=== PATIENT | female | born 1985 | race Caucasian/White ===

== ENCOUNTER 2016-05-11 09:13 | Emergency (ER) | payer OTHER ==
[~2016-05-11] VITALS: Ht 185.4 cm; Wt 113.4 kg
[~2016-05-11 09:13] MED LIST: ADVAIR HFA1 AER INH; ALBUTEROL0.09 MG/A1 INH; CARISOPRODOL350 M1 PO; CLINDAMYCIN HY300 MG PO; FIORICET 50-301 EACH PO; MECLIZINE HCL25 MG PO; MIRENA1 EACH; MOTRIN 600 MG600 MG PO; NAPROXEN500 M2 PO; PERCOCET 325 MG1 TA2 PO; PREDNISONE50 MG PO; REGLAN10 M1 PO; SUMATRIPTAN SU100 M1 PO; ZITHROMAX Z-PA250 M1 PO
--- NOTE | 2016-05-11 09:44 | ED GI/GU/ABDOMINAL COMPLAINT ---
History of Present Illness General Chief Complaint: Abdominal Pain/Flank Pain Stated Complaint: LOWER ABDOMINAL PAIN Source: patient Exam Limitations: no limitations Vital Signs & Intake/Output Vital Signs & Intake/Output Vital Signs Date Time Temp Pulse Resp B/P Pulse O2 O2 Flow FiO2 Ox Delivery Rate 05/11 1557 98.7 62 18 121/65 100 Room Air 05/11 1343 97.4 55 18 113/67 98 Room Air 05/11 1109 Room Air Room Air 05/11 0918 97.1 63 20 120/73 98 Room Air Allergies Coded Allergies: Penicillins (Intermediate, HIVES 09/11/15) amoxicillin (Intermediate, HIVES 09/11/15) clavulanic acid (From AUGMENTIN) (Intermediate, HIVES 09/11/15) Reconcile Medications Butalb/Acetaminophen/Caffeine (Fioricet 50-300-40 MG Capsule) 1 EACH CAPSULE 1 -2 TAB PO Q6H PRN HEADACHE Carisoprodol 350 MG TABLET 1 TAB PO BIDP PRN MUSCLE RELAXER (Reported) Levonorgestrel (Mirena) 1 EACH IUD CONTROL - IUD (Reported) Meclizine HCl 25 MG TABLET 1 TAB PO PRN DIZZINESS (Reported) Metoclopramide HCl (Reglan) 10 MG TABLET 1 TAB PO Q8H PRN nausea/headache Naproxen 500 MG TABLET 1 TAB PO BID PRN MIGRAINES (Reported) Oxycodone HCl/Acetaminophen (Percocet 5-325 MG Tablet) 5 MG-325 MG TABLET 1 TAB PO BID PRN pain Sumatriptan Succinate 100 MG TABLET 1 TAB PO AD HEADACHE (Reported) may repeat in 2 hours; do not exceed 200 mg in 24 hours Triage Note: LLQ PAIN THAT RADIATES INTO LEFT FLANK AND ACROSS ENTIRE ABDOMEN SINCE SATURDAY. +NAUSEA/VOMITING. PT STATES PAIN GETS MORE INTENSE WITH URINATION AND BM. Triage Nurses Notes Reviewed? yes ? N Is pt currently ? No HPI: This patient is a 30-year-old female with a past medical history including RAYNAUD'S, and cardiogenic syncope who presented to the emergency department today for evaluation of abdominal pain. She reported that since Saturday she has been having left lower quadrant abdominal pain which sometimes radiates across her stomach and now radiates to her left side/flank. The patient reported that the pain is 7 out of 10 and is sharp. She reported that sometimes it is worse with urination and bowel movements. She denied any blood in her stool, blood in the urine, urinary burning, urgency, or frequency. The patient reported nausea, but no vomiting. The patient reported that she recently saw her SURGICAL SUPPLIES STERILIZER approximately 2 days ago and was told that there may be a small left-sided ovarian cyst which is, "draining,"and that she should expect her symptoms to resolve in about a day. The patient is concerned that her symptoms have not resolved. The patient has an IUD in. Her SURGICAL SUPPLIES STERILIZER also did an internal examination and told her that everything was fine. No fevers, chills, chest pain, or difficulty breathing. The patient ate a bagel this morning without any difficulty. (FRANCISCO NGUYEN PA-C) Past History Travel History Traveled to [place] past 21 day No Medical History Any Pertinent Medical History? see below for history Neurological: migraine, seizure, vertigo EENT: NONE Cardiovascular: NONE Respiratory: NONE Gastrointestinal: NONE Hepatic: NONE Renal: NONE Musculoskeletal: NONE Psychiatric: NONE Endocrine: NONE Blood Disorders: NONE Cancer(s): NONE COOK RESTAURANT/Reproductive: NONE Surgical History Surgical History: N Psychosocial History What is your primary language Kyrgyz Tobacco Use: Current Daily Use Daily Tobacco Use Amount/Type: => 5 Cigarettes daily ETOH Use: occasional use Illicit Drug Use: denies illicit drug use Family History Hx Contributory? No (FRANCISCO NGUYEN PA-C) Review of Systems Review of Systems Constitutional: Reports: no symptoms. EENTM: Reports: no symptoms. Respiratory: Reports: no symptoms, see HPI, cough, hemoptysis, orthopnea, short of breath, sputum production, stridor, wheezing. Cardiovascular: Reports: no symptoms. GI: Reports: see HPI. Genitourinary: Reports: see HPI. Musculoskeletal: Reports: no symptoms. Skin: Reports: no symptoms. Neurological/Psychological: Reports: no symptoms. All Other Systems: Reviewed and Negative (FRANCISCO NGUYEN PA-C) Physical Exam Physical Exam Gastrointestinal: normal bowel sounds, soft, no organomegaly, TENDERNESS TO PALPATION IN THE LEFT GROIN REGION. nO REBOUND OR GUARDING. nONDISTENDED. nO MASSES APPRECIATED Comments: Well-developed well-nourished person in no acute distress HEENT: Normal EENT exam, moist mucous membranes Neck: Supple, no lymphadenopathy Back: Normal gait Cardiovascular: Regular rate and rhythm with no murmurs Respiratory: Chest nontender. No respiratory distress. Breath sounds clear to auscultation bilaterally Extremity: Normal and equal pulses Neuro: Alert oriented x3, cranial nerves II through XII grossly intact. Skin: No appreciable rash on exposed skin, skin is warm and dry. Psych: Mood and affect is normal Core Measures ACS in differential dx? No Severe Sepsis Present: No Septic Shock Present: No (PATRICK RESTREPO,FRANCISCO) Progress Differential Diagnosis: AMI, appendicitis, biliary colic, bowel obstruction, colon cancer, cholecystitis, diverticulitis, ectopic , endometritis, gastritis, hepatitis, hernia, ischemic bowel, inflamm bowel dis, intrauterine , kidney stone, ovarian cyst, ovarian torsion, pancreatitis, PID/ cervicitis, PUD/GERD, perforated viscous, SBO, threatened AB, UTI/pyelo Plan of Care: Orders Procedure Date/time Status Regular Diet 05/11 D Active RAPID VIRAL INFLUENZA A 05/11 0949 Complete LIPASE 05/11 0949 Complete COMPREHENSIVE METABOLIC PANEL 05/11 0949 Complete CBC WITHOUT DIFFERENTIAL 05/11 0949 Complete CULTURE,URINE 05/11 0947 Active URINE 05/11 0920 Complete URINALYSIS 05/11 0920 Complete Laboratory Tests 05/11/16 1034: Anion Gap 6, Estimated GFR > 60, BUN/Creatinine Ratio 28.0 H, Glucose 85, Calcium 8.5, Total Bilirubin 0.4, AST 71 H, ALT 122 H, Alkaline Phosphatase 57 , Total Protein 6.1 L, Albumin 3.7, Globulin 2.4, Albumin/Globulin Ratio 1.5, Lipase 67, CBC w Diff NO MAN DIFF REQ, RBC 4.22, MCV 90.5, MCH 30.2, RDW 13.3, MPV 7.4, Gran % 49.8, Lymphocytes % 38.5, Monocytes % 7.2, Eosinophils % 4.1, Basophils % 0.4, Absolute Granulocytes 4.3, Absolute Lymphocytes 3.3, Absolute Monocytes 0.6, Absolute Eosinophils 0.3, Absolute Basophils 0, PUBS MCHC 33.4, Urinalysis MOD H, Urine Color YEL, Urine Clarity CLDY H, Urine pH 8.5 H, Ur Specific [place] 1.015, Urine Protein TRACE H, Urine Ketones NEG, Urine Nitrite NEG, Urine Bilirubin NEG, Urine Urobilinogen 0.2, Ur Leukocyte Esterase NEG, Ur Microscopic SEDIMENT EXAMINED, Urine RBC 1-3, Urine WBC RARE, Ur Epithelial Cells MANY H, Urine Hemoglobin NEG, Urine Glucose NEG, Urine Test NEGATIVE Microbiology 05/11 1033 URINE ROUT: Urine Culture - RECD 05/11 1033 NASOPHARYN: Influenza Virus A & B Rapid Smear - COMP Diagnostic Imaging: Viewed by Me: CT Scan. Discussed w/RAD: CT Scan. Radiology Impression: PATIENT: AGUSTIN JOLLY PRESENT AGE: 30 PATIENT ACCOUNT NO: [id number] : 87 LOCATION: [facility] ORDERING PHYSICIAN: FRANCISCO NGUYEN PA-C SERVICE DATE: 05/11/16 EXAM TYPE: CAT - CT ABD & PELVIS W IV CONTRAST; US-TRANSVAGINAL EXAMINATION: CT ABDOMEN AND PELVIS WITH CONTRAST ULTRASOUND PELVIS CLINICAL INFORMATION: Evaluate for appendicitis. Abdominal pain. COMPARISON: None TECHNIQUE: Multidetector volumetric imaging was performed of the abdomen and pelvis before and after the IV administration of 93 mL of Optiray 320 intravenous contrast. Sagittal and coronal reformatted images were obtained on the technologist's workstation. DLP: 1430.55 mGy-cm FINDINGS: LUNG BASES: Minor dependent groundglass attenuation bilateral bases, left greater than right. Findings may be partly attributed to dependent atelectasis.. LIVER, GALLBLADDER, AND BILIARY TREE: The liver is normal in size, shape, and attenuation. No focal hepatic lesion or biliary ductal dilatation is present. Nonvisualization of the gallbladder may represent prior cholecystectomy. No evidence of biliary ductal dilatation. PANCREAS: Unremarkable. SPLEEN: Unremarkable. ADRENAL GLANDS: Unremarkable. KIDNEYS AND URETERS: The kidneys are normal in size, shape, and attenuation. No hydronephrosis, hydroureter, or calculi seen. No perinephric stranding. BLADDER: Unremarkable. GASTROINTESTINAL TRACT: Unremarkable appendix. No acute bowel pathology. ABDOMINAL WALL: No significant hernia is appreciated. LYMPH NODES: Small reactive mesenteric and retroperitoneal lymph nodes. No lymphadenopathy. VASCULAR: Unremarkable. PELVIC VISCERA: Enlarged left ovary with dominant slightly complex appearing cyst with internal septation measuring approximately 5.9 x 4.8 x 5.4 cm. Right ovary is within normal limits. No gross solid or cystic foci identified. There is small amount of adjacent free fluid. Anteverted uterus with intrauterine device in place. OSSEOUS STRUCTURES: No acute osseous abnormality. Unremarkable visualized osseous structures.. US PELVIS CLINICAL INFORMATION: Left groin pain COMPARISON: None TECHNIQUE: Transabdominal and transvaginal FINDINGS: Anteverted uterus measures 9.2 x 4.7 x 6.2 cm. Intrauterine device seen on the CT scan is faintly visualized. Endometrium is not well visualized. Measures approximately 0.7 cm. No evidence of uterine fibroids. Cervical length is 2.8 cm. Tiny nabothian cyst is noted. Enlarged left ovary measuring 5.3 x 4.1 x 5.5 cm. Total volume 62.9 mL. Complex cyst noted in the left ovary measuring approximately 3.2 x 3.8 x 3.3 cm. There is internal septation and debris. Adjacent simple cyst most likely represents part of the complex cyst by thick septation measures 4 x 3.2 x 4.2 cm. Small amount of ovarian tissue surrounding the cyst demonstrates normal flow. Right ovary measures 3.4 x 1.8 x 2.4 cm. Total volume 7.6 mL. Normal vascular flow. There is small amount of free fluid. IMPRESSION: CT ABDOMEN AND PELVIS 1. There is no evidence of acute appendicitis. 2. Large complex cystic mass left ovary with internal septations. Pelvic free fluid. ULTRASOUND PELVIS 1. Large complex cystic mass left ovary with internal debris and internal septations. Combined measurement is approximately 5.3 x 4.1 x 5.5 cm. Free fluid. COOK RESTAURANT evaluation recommended. 2. No evidence of ovarian torsion. DICTATED BY: STAR RODRIGUEZ MD DATE/TIME DICTATED:05/11/161318 SENIOR SCHEDULER:LEVY DATE/TIME TRANSCRIBED:05/11/161318 CONFIDENTIAL, DO NOT COPY WITHOUT APPROPRIATE AUTHORIZATION. <Electronically signed in Other Vendor System> SIGNED BY: STAR RODRIGUEZ MD 05/11/16 0392 Initial ED EKG: none Comments: 05/11/2016 12:15:25 PM: I updated the patient on the results of her laboratory studies. We will repeat the ultrasound to evaluate her left ovarian cyst. I also discussed this patient the risks of radiation when her mother suggested a CT scan of the abdomen and pelvis they understand would like to go ahead with the CT scan. The patient's mother reported that appendicitis and ovarian cysts run in the family. 05/11/2016 4:04:11 PM: Spoke to on-call OB/GYBN Dr. Cash after being unable to get ahold of this patient's personal OB. SHe believes this is a hemhorragic cyst. H&H is stable. Pulse is WNL. She suggested discharge with Percocet, Motrin , and OB follow-up. (PATRICK RESTREPO,FRANCISCO) Departure Departure Disposition: HOME OR SELF CARE Condition: Stable Clinical Impression Primary Impression: Ovarian cyst Qualifiers: Laterality: left Qualified Code: N83.202 - Unspecified ovarian cyst , left side Referrals: JAKE PEDROZA APRN (PCP/Family) HILTON ORDOÑEZ,PAYAL Nathan Additional Instructions: Please follow-up with your SURGICAL SUPPLIES STERILIZER as discussed. You have been provided a copy of the ultrasound and CT scan report. Please return to the emergency department for any worsening symptoms or concerns. Take [id number] Motrin. Percocet as prescribed. Departure Forms: Customer Survey General Discharge Information Prescriptions: Current Visit Scripts Oxycodone HCl/Acetaminophen (Percocet 5-325 MG Tablet) 1 TAB PO BID PRN pain #10 TAB (FRANCISCO NGUYEN PA-C) PA/RETAIL BRAND AMBASSADOR Co-Sign Statement Statement: ED Attending supervision documentation- [] I saw and evaluated the patient. I have also reviewed all the pertinent lab results and diagnostic results. I agree with the findings and the plan of care as documented in the PA's/RETAIL BRAND AMBASSADOR's documentation. [X] I have reviewed the ED Record and agree with the PA's/RETAIL BRAND AMBASSADOR's documentation. [] Additions or exceptions (if any) to the PAs/RETAIL BRAND AMBASSADOR's note and plan are summarized below: [] (FADUMO ORDOÑEZ,ANTHONY)
[2016-05-11 10:59] LABS: ABSOLUTE BASOPHIL COUNT 0 /CUMM (0.0-0.2); ABSOLUTE EOSINOPHIL COUNT 0.3 /CUMM (0.0-0.7); ABSOLUTE GRANULOCYTE CT 4.3 /CUMM (1.4-6.5); ABSOLUTE LYMPH COUNT 3.3 /CUMM (1.2-3.4); ABSOLUTE MONOCYTE COUNT 0.6 /CUMM (0.10-0.60); BASOPHIL % 0.4 % (0.0-2.0); EOSINOPHIL % 4.1 % (0-5); GRANULOCYTE % 49.8 % (42.2-75.2); HEMATOCRIT 38.2 % (37-47); MEAN CORPUSCULAR HGB 30.2 PG (27.0-31.0); MEAN CORPUSCULAR HGB CONC 33.4 G/DL (33.0-37.0); MEAN CORPUSCULAR VOLUME 90.5 FL (81.0-99.0); MEAN PLATELET VOLUME 7.4 FL (7.4-10.4); PLATELET COUNT 316 /CUMM (130-400); RBC DISTRIBUTION WIDTH 13.3 % (11.5-14.5); RED BLOOD CELL CT 4.22 /CUMM (4.20-5.40); WHITE BLOOD CELL COUNT 8.6 /CUMM (4.8-10.8)
--- NOTE | 2016-05-11 13:51 | CT SCAN REPORT ---
EXAMINATION: CT ABDOMEN AND PELVIS WITH CONTRAST ULTRASOUND PELVIS CLINICAL INFORMATION: Evaluate for appendicitis. Abdominal pain. COMPARISON: None TECHNIQUE: Multidetector volumetric imaging was performed of the abdomen and pelvis before and after the IV administration of 93 mL of Optiray 320 intravenous contrast. Sagittal and coronal reformatted images were obtained on the technologist's workstation. DLP: 1430.55 mGy-cm FINDINGS: LUNG BASES: Minor dependent groundglass attenuation bilateral bases, left greater than right. Findings may be partly attributed to dependent atelectasis.. LIVER, GALLBLADDER, AND BILIARY TREE: The liver is normal in size, shape, and attenuation. No focal hepatic lesion or biliary ductal dilatation is present. Nonvisualization of the gallbladder may represent prior cholecystectomy. No evidence of biliary ductal dilatation. PANCREAS: Unremarkable. SPLEEN: Unremarkable. ADRENAL GLANDS: Unremarkable. KIDNEYS AND URETERS: The kidneys are normal in size, shape, and attenuation. No hydronephrosis, hydroureter, or calculi seen. No perinephric stranding. BLADDER: Unremarkable. GASTROINTESTINAL TRACT: Unremarkable appendix. No acute bowel pathology. ABDOMINAL WALL: No significant hernia is appreciated. LYMPH NODES: Small reactive mesenteric and retroperitoneal lymph nodes. No lymphadenopathy. VASCULAR: Unremarkable. PELVIC VISCERA: Enlarged left ovary with dominant slightly complex appearing cyst with internal septation measuring approximately 5.9 x 4.8 x 5.4 cm. Right ovary is within normal limits. No gross solid or cystic foci identified. There is small amount of adjacent free fluid. Anteverted uterus with intrauterine device in place. OSSEOUS STRUCTURES: No acute osseous abnormality. Unremarkable visualized osseous structures.. US PELVIS CLINICAL INFORMATION: Left groin pain COMPARISON: None TECHNIQUE: Transabdominal and transvaginal FINDINGS: Anteverted uterus measures 9.2 x 4.7 x 6.2 cm. Intrauterine device seen on the CT scan is faintly visualized. Endometrium is not well visualized. Measures approximately 0.7 cm. No evidence of uterine fibroids. Cervical length is 2.8 cm. Tiny nabothian cyst is noted. Enlarged left ovary measuring 5.3 x 4.1 x 5.5 cm. Total volume 62.9 mL. Complex cyst noted in the left ovary measuring approximately 3.2 x 3.8 x 3.3 cm. There is internal septation and debris. Adjacent simple cyst most likely represents part of the complex cyst by thick septation measures 4 x 3.2 x 4.2 cm. Small amount of ovarian tissue surrounding the cyst demonstrates normal flow. Right ovary measures 3.4 x 1.8 x 2.4 cm. Total volume 7.6 mL. Normal vascular flow. There is small amount of free fluid. IMPRESSION: CT ABDOMEN AND PELVIS 1. There is no evidence of acute appendicitis. 2. Large complex cystic mass left ovary with internal septations. Pelvic free fluid. ULTRASOUND PELVIS 1. Large complex cystic mass left ovary with internal debris and internal septations. Combined measurement is approximately 5.3 x 4.1 x 5.5 cm. Free fluid. TRACTOR TRAILER DRIVER evaluation recommended. 2. No evidence of ovarian torsion.
[2016-05-11] MEDS ORDERED: TRAMADOL HCL50 M1 PO (15:44)
[2016-05-11 15:57] VITALS: BP 121/65
[2016-05-11] MEDS ORDERED: PERCOCET 5-3251 EACH PO (16:05)
== END 2016-05-11 16:00 ==
LOC: ERH 09:13
PROVIDERS: Physician Assistant
DX: N83.202 Unspecified ovarian cyst, left side (principal)
CPT/HCPCS: 74177; 81001; 81025; 87086; 87804; 87804-59; 96374; 96375; J1885; J2405